=== PATIENT | male | born 1960 | race Caucasian/White ===

== ENCOUNTER 2020-01-28 17:28 | Emergency (ER) | payer OTHER, SELFPAY ==
[2020-01-28] MEDS ORDERED: Bacitracin 1 PK ONE (17:42)
[2020-01-28] MEDS ORDERED: Sulfameth/Trimethoprim DS 800-160mg TAB ONE (18:44)
== END 2020-01-28 18:48 | disposition home or self-care (01) ==
LOC: BURERS 17:28
DX: S61.432A Puncture wound without foreign body of left hand, initial encounter (principal); F17.210 Nicotine dependence, cigarettes, uncomplicated; W22.8XXA Striking against or struck by other objects, initial encounter
CPT/HCPCS: 99283